=== PATIENT | female | born 1950 | race Caucasian/White ===

== ENCOUNTER 2017-02-11 13:36 | Emergency (ER) | payer MEDICARE, MEDICAID, SELFPAY ==
[2017-02-11 14:16] LABS: CHLORIDE,CL 101 mmol/L (98-107); SODIUM,NA 137 mmol/L (136-145)
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
[2017-02-11] MEDS ORDERED: Potassium Chloride 20 MEQ Tab.ER PO ONE (14:29)
[2017-02-11] MEDS ORDERED: D5 1/2 NS w/ 20 mEq/L KCl 500 ML IV SCH (15:15)
[2017-02-11] MEDS ORDERED: Sodium Chloride 0.9% 1,000 ML IV ONE (19:55)
[2017-02-11 21:00] VITALS: BP 114/80
== END 2017-02-11 20:37 ==
LOC: LL.ED 13:36
DX: S09.90XA Unspecified injury of head, initial encounter (principal); N39.0 Urinary tract infection, site not specified; E87.6 Hypokalemia; F19.10 Other psychoactive substance abuse, uncomplicated; J44.9 Chronic obstructive pulmonary disease, unspecified; K21.9 Gastro-esophageal reflux disease without esophagitis; G43.909 Migraine, unspecified, not intractable, without status migrainosus; F41.9 Anxiety disorder, unspecified; F32.9 Major depressive disorder, single episode, unspecified; E66.9 Obesity, unspecified; Z88.6 Allergy status to analgesic agent; Z91.040 Latex allergy status; Z88.1 Allergy status to other antibiotic agents; Z88.5 Allergy status to narcotic agent; Z91.09 Other allergy status, other than to drugs and biological substances; Z79.899 Other long term (current) drug therapy; Z79.01 Long term (current) use of anticoagulants; Z87.891 Personal history of nicotine dependence; W22.8XXA Striking against or struck by other objects, initial encounter
CPT/HCPCS: 36415; 70450; 80053; 80305; 81001; 85025; 85610; 87086; 93005; 96360; 96361; 99285; A9270; G0480; J3480

== ENCOUNTER 2022-01-21 12:41 | Emergency (ER) | payer MEDICARE ==
[2022-01-21] MEDS ORDERED: Sodium Chloride 0.9% 1,000 ML IV SCH (12:45)
[2022-01-21] MEDS: fentaNYL 50 MCG/ML SDV IVPUSH PRN ×2 (12:54→15:57)
[2022-01-21 13:15] LABS: ANION GAP 5.3 meq/L (7-15); CHLORIDE,CL 105 mmol/L (98-107); SODIUM,NA 140 mmol/L (136-145)
[2022-01-21 18:14] VITALS: BP 136/95; PULSE 66
== END 2022-01-21 16:07 ==
LOC: LL.ED 12:41
DX: S82.853A Displaced trimalleolar fracture of unspecified lower leg, initial encounter for closed fracture (principal); S00.81XA Abrasion of other part of head, initial encounter; J44.9 Chronic obstructive pulmonary disease, unspecified; K21.9 Gastro-esophageal reflux disease without esophagitis; E66.9 Obesity, unspecified; Z68.30 Body mass index [BMI] 30.0-30.9, adult; Z88.1 Allergy status to other antibiotic agents; Z91.040 Latex allergy status; Z88.8 Allergy status to other drugs, medicaments and biological substances; Z79.84 Long term (current) use of oral hypoglycemic drugs; W00.0XXA Fall on same level due to ice and snow, initial encounter
CPT/HCPCS: 27818; 36415; 70450; 71045; 72131; 73610-LT; 80053; 83735; 85025; 85610; 87426; 93005; 93010; 99285; 99285-25; J3010; J7030

== ENCOUNTER 2022-01-27 09:00 | Inpatient (IN) | payer MEDICARE ==
[2022-01-27] MEDS ORDERED: Polyethylene Glycol 3350 Powder 17 GM Packet PO PRN (13:25)
[2022-01-27] MEDS: oxyCODONE 5 MG Tab PO PRN ×3 (14:07→22:21)
[2022-01-27] MEDS ORDERED: oxyCODONE 5 MG Tab PO PRN (14:26)
[2022-01-27] MEDS: Docusate Sodium 100 MG Cap PO SCH (17:21)
[2022-01-27] MEDS: Baclofen 10 MG Tab PO SCH (17:21)
[2022-01-27] MEDS: metFORMIN 500 MG Tab PO SCH (17:21)
[2022-01-27] MEDS: Doxepin 25 MG Cap PO PRN (22:20)
[2022-01-27] MEDS: LORazepam 0.5 MG Tab PO PRN (22:22)
[2022-01-28] MEDS: Ascorbic Acid 500 MG Tab PO SCH (07:14)
[2022-01-28] MEDS: Docusate Sodium 100 MG Cap PO SCH ×2 (07:14→17:12)
[2022-01-28] MEDS: Simvastatin 20 MG Tab PO SCH (07:15)
[2022-01-28] MEDS: Folic Acid 1 MG Tab PO SCH (07:15)
[2022-01-28] MEDS: metFORMIN 500 MG Tab PO SCH ×2 (07:15→17:13)
[2022-01-28] MEDS: Cholecalciferol (Vitamin D3) 25 MCG Tab PO SCH (07:16)
[2022-01-28] MEDS: Baclofen 10 MG Tab PO SCH ×3 (07:16→17:13)
[2022-01-28] MEDS: oxyCODONE 5 MG Tab PO PRN ×4 (07:16→20:19)
[2022-01-28] MEDS: Omeprazole 20 MG Cap.CR PO SCH (07:17)
[2022-01-28] MEDS: Calcium Carbonate/Vitamin D3 1500 MG-400 Units Tab PO SCH (07:17)
[2022-01-28] MEDS: Fish Oil/Omega-3 Fatty Acids 1 Gm Cap PO SCH (07:18)
[2022-01-28] MEDS ORDERED: Warfarin 5 MG Tab PO ONE (18:00)
[2022-01-28] MEDS: Enoxaparin 100 MG/1 ML Syringe SUBCUT SCH (20:19)
[2022-01-28] MEDS: Doxepin 25 MG Cap PO PRN (22:16)
[2022-01-28] MEDS: LORazepam 0.5 MG Tab PO PRN (22:16)
[2022-01-29] MEDS: Calcium Carbonate/Vitamin D3 1500 MG-400 Units Tab PO SCH (08:02)
[2022-01-29] MEDS: Docusate Sodium 100 MG Cap PO SCH ×2 (08:03→18:19)
[2022-01-29] MEDS: oxyCODONE 5 MG Tab PO PRN ×4 (08:03→20:52)
[2022-01-29] MEDS: Simvastatin 20 MG Tab PO SCH (08:04)
[2022-01-29] MEDS: Cholecalciferol (Vitamin D3) 25 MCG Tab PO SCH (08:04)
[2022-01-29] MEDS: Fish Oil/Omega-3 Fatty Acids 1 Gm Cap PO SCH (08:05)
[2022-01-29] MEDS: Ascorbic Acid 500 MG Tab PO SCH (08:05)
[2022-01-29] MEDS: metFORMIN 500 MG Tab PO SCH ×2 (08:05→18:19)
[2022-01-29] MEDS: Baclofen 10 MG Tab PO SCH ×3 (08:06→18:18)
[2022-01-29] MEDS: Folic Acid 1 MG Tab PO SCH (08:06)
[2022-01-29] MEDS: Enoxaparin 100 MG/1 ML Syringe SUBCUT SCH ×2 (08:07→20:30)
[2022-01-29] MEDS: Omeprazole 20 MG Cap.CR PO SCH (08:12)
[2022-01-29] MEDS ORDERED: Warfarin 5 MG Tab PO ONE (18:00)
[2022-01-29] MEDS: Doxepin 25 MG Cap PO PRN (22:12)
[2022-01-29] MEDS: LORazepam 0.5 MG Tab PO PRN (22:12)
[2022-01-30] MEDS: Ascorbic Acid 500 MG Tab PO SCH (07:14)
[2022-01-30] MEDS: Omeprazole 20 MG Cap.CR PO SCH (07:14)
[2022-01-30] MEDS: oxyCODONE 5 MG Tab PO PRN ×4 (07:14→21:01)
[2022-01-30] MEDS: Calcium Carbonate/Vitamin D3 1500 MG-400 Units Tab PO SCH (07:14)
[2022-01-30] MEDS: Cholecalciferol (Vitamin D3) 25 MCG Tab PO SCH (07:15)
[2022-01-30] MEDS: Simvastatin 20 MG Tab PO SCH (07:15)
[2022-01-30] MEDS: metFORMIN 500 MG Tab PO SCH ×2 (07:15→17:19)
[2022-01-30] MEDS: Docusate Sodium 100 MG Cap PO SCH ×2 (07:16→17:25)
[2022-01-30] MEDS: Folic Acid 1 MG Tab PO SCH (07:16)
[2022-01-30] MEDS: Baclofen 10 MG Tab PO SCH ×3 (07:16→17:20)
[2022-01-30] MEDS: Fish Oil/Omega-3 Fatty Acids 1 Gm Cap PO SCH (07:16)
[2022-01-30] MEDS: Enoxaparin 100 MG/1 ML Syringe SUBCUT SCH ×2 (07:17→20:59)
[2022-01-30] MEDS ORDERED: Warfarin 5 MG Tab PO ONE (18:00)
[2022-01-30] MEDS: LORazepam 0.5 MG Tab PO PRN (22:40)
[2022-01-30] MEDS: Doxepin 25 MG Cap PO PRN (22:40)
[2022-01-31] MEDS: oxyCODONE 5 MG Tab PO PRN ×5 (01:08→19:40)
[2022-01-31] MEDS: Omeprazole 20 MG Cap.CR PO SCH (07:34)
[2022-01-31] MEDS: Calcium Carbonate/Vitamin D3 1500 MG-400 Units Tab PO SCH (07:34)
[2022-01-31] MEDS: Folic Acid 1 MG Tab PO SCH (07:34)
[2022-01-31] MEDS: Fish Oil/Omega-3 Fatty Acids 1 Gm Cap PO SCH (07:35)
[2022-01-31] MEDS: Cholecalciferol (Vitamin D3) 25 MCG Tab PO SCH (07:35)
[2022-01-31] MEDS: Baclofen 10 MG Tab PO SCH ×3 (07:35→18:13)
[2022-01-31] MEDS: Ascorbic Acid 500 MG Tab PO SCH (07:35)
[2022-01-31] MEDS: metFORMIN 500 MG Tab PO SCH ×2 (07:35→18:13)
[2022-01-31] MEDS: Simvastatin 20 MG Tab PO SCH (07:36)
[2022-01-31] MEDS: Docusate Sodium 100 MG Cap PO SCH ×2 (07:36→18:13)
[2022-01-31] MEDS: Enoxaparin 100 MG/1 ML Syringe SUBCUT SCH (10:26)
[2022-01-31] MEDS ORDERED: Warfarin 5 MG Tab PO ONE (18:00)
[2022-01-31] MEDS: LORazepam 0.5 MG Tab PO PRN (22:06)
[2022-01-31] MEDS: Doxepin 25 MG Cap PO PRN (22:07)
[2022-02-01] MEDS: oxyCODONE 5 MG Tab PO PRN ×5 (01:36→21:15)
[2022-02-01] MEDS: Folic Acid 1 MG Tab PO SCH (07:43)
[2022-02-01] MEDS: Docusate Sodium 100 MG Cap PO SCH ×2 (07:44→17:18)
[2022-02-01] MEDS: metFORMIN 500 MG Tab PO SCH ×2 (07:44→17:18)
[2022-02-01] MEDS: Ascorbic Acid 500 MG Tab PO SCH (07:44)
[2022-02-01] MEDS: Omeprazole 20 MG Cap.CR PO SCH (07:45)
[2022-02-01] MEDS: Baclofen 10 MG Tab PO SCH ×3 (07:45→17:18)
[2022-02-01] MEDS: Simvastatin 20 MG Tab PO SCH (07:45)
[2022-02-01] MEDS: Cholecalciferol (Vitamin D3) 25 MCG Tab PO SCH (07:45)
[2022-02-01] MEDS: Calcium Carbonate/Vitamin D3 1500 MG-400 Units Tab PO SCH (07:46)
[2022-02-01] MEDS: Fish Oil/Omega-3 Fatty Acids 1 Gm Cap PO SCH (07:46)
[2022-02-01] MEDS ORDERED: Warfarin 2 MG Tab PO ONE (18:00)
[2022-02-01] MEDS: Doxepin 25 MG Cap PO PRN (22:22)
[2022-02-01] MEDS: LORazepam 0.5 MG Tab PO PRN (22:22)
[2022-02-02] MEDS: oxyCODONE 5 MG Tab PO PRN ×2 (04:10→08:31)
[2022-02-02] MEDS: Methotrexate 2.5 MG Tab PO SCH (08:30)
[2022-02-02] MEDS: Cholecalciferol (Vitamin D3) 25 MCG Tab PO SCH (08:30)
[2022-02-02] MEDS: Fish Oil/Omega-3 Fatty Acids 1 Gm Cap PO SCH (08:30)
[2022-02-02] MEDS: Omeprazole 20 MG Cap.CR PO SCH (08:30)
[2022-02-02] MEDS: Calcium Carbonate/Vitamin D3 1500 MG-400 Units Tab PO SCH (08:30)
[2022-02-02] MEDS: Folic Acid 1 MG Tab PO SCH (08:30)
[2022-02-02] MEDS: Ascorbic Acid 500 MG Tab PO SCH (08:30)
[2022-02-02] MEDS: Docusate Sodium 100 MG Cap PO SCH ×2 (08:30→17:24)
[2022-02-02] MEDS: Baclofen 10 MG Tab PO SCH ×3 (08:31→17:24)
[2022-02-02] MEDS: Simvastatin 20 MG Tab PO SCH (08:31)
[2022-02-02] MEDS: metFORMIN 500 MG Tab PO SCH ×2 (08:32→17:23)
[2022-02-02] MEDS ORDERED: fentaNYL 12 MCG/HR Transdermal Patch TRDERM SCH (10:00)
[2022-02-02] MEDS: traMADol 50 MG Tab PO PRN (16:45)
[2022-02-02] MEDS: Warfarin 2 MG Tab PO SCH (17:23)
[2022-02-02] MEDS: Gabapentin 300 MG Cap PO SCH (17:24)
[2022-02-02] MEDS: Doxepin 25 MG Cap PO PRN (20:46)
[2022-02-02] MEDS: LORazepam 0.5 MG Tab PO PRN (20:47)
[2022-02-03] MEDS: Ascorbic Acid 500 MG Tab PO SCH (07:52)
[2022-02-03] MEDS: metFORMIN 500 MG Tab PO SCH ×2 (07:53→17:11)
[2022-02-03] MEDS: Simvastatin 20 MG Tab PO SCH (07:53)
[2022-02-03] MEDS: Omeprazole 20 MG Cap.CR PO SCH (07:53)
[2022-02-03] MEDS: Calcium Carbonate/Vitamin D3 1500 MG-400 Units Tab PO SCH (07:54)
[2022-02-03] MEDS: Baclofen 10 MG Tab PO SCH (07:54)
[2022-02-03] MEDS: Cholecalciferol (Vitamin D3) 25 MCG Tab PO SCH (07:54)
[2022-02-03] MEDS: Folic Acid 1 MG Tab PO SCH (07:54)
[2022-02-03] MEDS: Gabapentin 300 MG Cap PO SCH (07:55)
[2022-02-03] MEDS: Fish Oil/Omega-3 Fatty Acids 1 Gm Cap PO SCH (07:55)
[2022-02-03] MEDS: Docusate Sodium 100 MG Cap PO SCH ×3 (07:55→17:12)
[2022-02-03] MEDS: traMADol 50 MG Tab PO PRN ×2 (14:46→22:46)
[2022-02-03] MEDS: Pregabalin 75 MG Cap PO SCH (17:11)
[2022-02-03] MEDS: Warfarin 2 MG Tab PO SCH (17:12)
[2022-02-03] MEDS: Baclofen 10 MG Tab PO PRN (20:30)
[2022-02-03] MEDS: Doxepin 25 MG Cap PO PRN (22:44)
[2022-02-04] MEDS: Docusate Sodium 100 MG Cap PO SCH ×2 (07:19→17:16)
[2022-02-04] MEDS: Pregabalin 75 MG Cap PO SCH ×2 (07:19→17:16)
[2022-02-04] MEDS: Ascorbic Acid 500 MG Tab PO SCH (07:19)
[2022-02-04] MEDS: Fish Oil/Omega-3 Fatty Acids 1 Gm Cap PO SCH (07:19)
[2022-02-04] MEDS: Folic Acid 1 MG Tab PO SCH (07:19)
[2022-02-04] MEDS: traMADol 50 MG Tab PO PRN (07:20)
[2022-02-04] MEDS: metFORMIN 500 MG Tab PO SCH ×2 (07:20→17:16)
[2022-02-04] MEDS: Calcium Carbonate/Vitamin D3 1500 MG-400 Units Tab PO SCH (07:21)
[2022-02-04] MEDS: Omeprazole 20 MG Cap.CR PO SCH (07:21)
[2022-02-04] MEDS: Simvastatin 20 MG Tab PO SCH (07:21)
[2022-02-04] MEDS: Cholecalciferol (Vitamin D3) 25 MCG Tab PO SCH (07:21)
[2022-02-04] MEDS ORDERED: traMADol 50 MG Tab PO PRN (11:00)
[2022-02-04] MEDS: Baclofen 10 MG Tab PO PRN ×2 (12:54→20:54)
[2022-02-04] MEDS: Warfarin 2 MG Tab PO SCH (17:17)
[2022-02-04] MEDS: Doxepin 25 MG Cap PO PRN (22:08)
[2022-02-05] MEDS: metFORMIN 500 MG Tab PO SCH ×2 (07:21→17:51)
[2022-02-05] MEDS: Fish Oil/Omega-3 Fatty Acids 1 Gm Cap PO SCH (07:21)
[2022-02-05] MEDS: Omeprazole 20 MG Cap.CR PO SCH (07:21)
[2022-02-05] MEDS: Folic Acid 1 MG Tab PO SCH (07:22)
[2022-02-05] MEDS: Pregabalin 75 MG Cap PO SCH ×2 (07:22→17:51)
[2022-02-05] MEDS: Ascorbic Acid 500 MG Tab PO SCH (07:22)
[2022-02-05] MEDS: Cholecalciferol (Vitamin D3) 25 MCG Tab PO SCH (07:22)
[2022-02-05] MEDS: Simvastatin 20 MG Tab PO SCH (07:22)
[2022-02-05] MEDS: Calcium Carbonate/Vitamin D3 1500 MG-400 Units Tab PO SCH (07:23)
[2022-02-05] MEDS: Docusate Sodium 100 MG Cap PO SCH ×2 (07:23→17:51)
[2022-02-05] MEDS ORDERED: Remove Patch FENTANYL PATCH TRDERM SCH (10:00)
[2022-02-05] MEDS ORDERED: traMADol 50 MG Tab PO PRN (12:00)
[2022-02-05] MEDS: Warfarin 2 MG Tab PO SCH (17:51)
[2022-02-05] MEDS: Doxepin 25 MG Cap PO PRN (22:26)
[2022-02-06] MEDS: Docusate Sodium 100 MG Cap PO SCH ×2 (08:13→17:39)
[2022-02-06] MEDS: Calcium Carbonate/Vitamin D3 1500 MG-400 Units Tab PO SCH (08:13)
[2022-02-06] MEDS: Fish Oil/Omega-3 Fatty Acids 1 Gm Cap PO SCH (08:13)
[2022-02-06] MEDS: Pregabalin 75 MG Cap PO SCH ×2 (08:13→17:40)
[2022-02-06] MEDS: metFORMIN 500 MG Tab PO SCH ×2 (08:13→17:40)
[2022-02-06] MEDS: Simvastatin 20 MG Tab PO SCH (08:13)
[2022-02-06] MEDS: Folic Acid 1 MG Tab PO SCH (08:13)
[2022-02-06] MEDS: Ascorbic Acid 500 MG Tab PO SCH (08:13)
[2022-02-06] MEDS: Omeprazole 20 MG Cap.CR PO SCH (08:14)
[2022-02-06] MEDS: Cholecalciferol (Vitamin D3) 25 MCG Tab PO SCH (08:14)
[2022-02-06] MEDS: Baclofen 10 MG Tab PO PRN ×2 (15:51→22:14)
[2022-02-06] MEDS: Warfarin 2 MG Tab PO SCH (17:40)
[2022-02-06] MEDS ORDERED: Ketorolac 30 MG/ML SDV IM ONE (19:58)
[2022-02-06] MEDS: Doxepin 25 MG Cap PO PRN (22:14)
[2022-02-06] MEDS: traMADol 50 MG Tab PO PRN (22:15)
[2022-02-07] MEDS: Folic Acid 1 MG Tab PO SCH (07:38)
[2022-02-07] MEDS: Fish Oil/Omega-3 Fatty Acids 1 Gm Cap PO SCH (07:38)
[2022-02-07] MEDS: Omeprazole 20 MG Cap.CR PO SCH (07:38)
[2022-02-07] MEDS: Pregabalin 75 MG Cap PO SCH ×2 (07:38→17:42)
[2022-02-07] MEDS: Calcium Carbonate/Vitamin D3 1500 MG-400 Units Tab PO SCH (07:39)
[2022-02-07] MEDS: Cholecalciferol (Vitamin D3) 25 MCG Tab PO SCH (07:39)
[2022-02-07] MEDS: Simvastatin 20 MG Tab PO SCH (07:40)
[2022-02-07] MEDS: metFORMIN 500 MG Tab PO SCH ×2 (07:40→16:40)
[2022-02-07] MEDS: Ascorbic Acid 500 MG Tab PO SCH (07:40)
[2022-02-07] MEDS: Docusate Sodium 100 MG Cap PO SCH ×2 (07:41→17:44)
[2022-02-07] MEDS: traMADol 50 MG Tab PO PRN ×2 (12:40→21:57)
[2022-02-07] MEDS: Baclofen 10 MG Tab PO PRN ×2 (16:40→21:57)
[2022-02-07] MEDS: Warfarin 2 MG Tab PO SCH (17:43)
[2022-02-07] MEDS: Doxepin 25 MG Cap PO PRN (21:58)
[2022-02-08] MEDS: Ascorbic Acid 500 MG Tab PO SCH (07:54)
[2022-02-08] MEDS: Fish Oil/Omega-3 Fatty Acids 1 Gm Cap PO SCH (07:55)
[2022-02-08] MEDS: Calcium Carbonate/Vitamin D3 1500 MG-400 Units Tab PO SCH (07:55)
[2022-02-08] MEDS: metFORMIN 500 MG Tab PO SCH ×2 (07:55→17:07)
[2022-02-08] MEDS: Cholecalciferol (Vitamin D3) 25 MCG Tab PO SCH (07:55)
[2022-02-08] MEDS: Omeprazole 20 MG Cap.CR PO SCH (07:55)
[2022-02-08] MEDS: Simvastatin 20 MG Tab PO SCH (07:55)
[2022-02-08] MEDS: Pregabalin 75 MG Cap PO SCH ×2 (07:56→17:07)
[2022-02-08] MEDS: Docusate Sodium 100 MG Cap PO SCH ×2 (07:56→17:08)
[2022-02-08] MEDS: Folic Acid 1 MG Tab PO SCH (07:56)
[2022-02-08] MEDS: Warfarin 2 MG Tab PO SCH (17:07)
[2022-02-08] MEDS: Doxepin 25 MG Cap PO PRN (22:33)
[2022-02-08] MEDS: Baclofen 10 MG Tab PO PRN (22:33)
[2022-02-09] MEDS: traMADol 50 MG Tab PO PRN ×3 (02:23→21:46)
[2022-02-09] MEDS: Calcium Carbonate/Vitamin D3 1500 MG-400 Units Tab PO SCH (07:37)
[2022-02-09] MEDS: Methotrexate 2.5 MG Tab PO SCH (07:37)
[2022-02-09] MEDS: Pregabalin 75 MG Cap PO SCH ×2 (07:38→17:17)
[2022-02-09] MEDS: Ascorbic Acid 500 MG Tab PO SCH (07:38)
[2022-02-09] MEDS: Folic Acid 1 MG Tab PO SCH (07:38)
[2022-02-09] MEDS: Cholecalciferol (Vitamin D3) 25 MCG Tab PO SCH (07:39)
[2022-02-09] MEDS: Omeprazole 20 MG Cap.CR PO SCH (07:39)
[2022-02-09] MEDS: Fish Oil/Omega-3 Fatty Acids 1 Gm Cap PO SCH (07:39)
[2022-02-09] MEDS: metFORMIN 500 MG Tab PO SCH ×2 (07:39→17:17)
[2022-02-09] MEDS: Simvastatin 20 MG Tab PO SCH (07:40)
[2022-02-09] MEDS: Docusate Sodium 100 MG Cap PO SCH ×2 (07:40→17:18)
[2022-02-09] MEDS: Warfarin 2 MG Tab PO SCH (17:18)
[2022-02-09] MEDS: Doxepin 25 MG Cap PO PRN (21:46)
[2022-02-09] MEDS: Baclofen 10 MG Tab PO PRN (21:50)
[2022-02-10] MEDS: Folic Acid 1 MG Tab PO SCH (07:16)
[2022-02-10] MEDS: Simvastatin 20 MG Tab PO SCH (07:16)
[2022-02-10] MEDS: metFORMIN 500 MG Tab PO SCH ×2 (07:16→17:12)
[2022-02-10] MEDS: Ascorbic Acid 500 MG Tab PO SCH (07:16)
[2022-02-10] MEDS: Cholecalciferol (Vitamin D3) 25 MCG Tab PO SCH (07:17)
[2022-02-10] MEDS: Calcium Carbonate/Vitamin D3 1500 MG-400 Units Tab PO SCH (07:17)
[2022-02-10] MEDS: Omeprazole 20 MG Cap.CR PO SCH (07:17)
[2022-02-10] MEDS: Pregabalin 75 MG Cap PO SCH ×2 (07:17→17:12)
[2022-02-10] MEDS: Fish Oil/Omega-3 Fatty Acids 1 Gm Cap PO SCH (07:17)
[2022-02-10] MEDS: Docusate Sodium 100 MG Cap PO SCH ×2 (07:18→17:12)
[2022-02-10] MEDS: Warfarin 2 MG Tab PO SCH (17:12)
[2022-02-10] MEDS: Doxepin 25 MG Cap PO PRN (21:48)
[2022-02-10] MEDS: traMADol 50 MG Tab PO PRN (21:48)
[2022-02-11] MEDS: traMADol 50 MG Tab PO PRN (03:59)
[2022-02-11] MEDS: metFORMIN 500 MG Tab PO SCH ×2 (08:03→17:21)
[2022-02-11] MEDS: Omeprazole 20 MG Cap.CR PO SCH (08:03)
[2022-02-11] MEDS: Calcium Carbonate/Vitamin D3 1500 MG-400 Units Tab PO SCH (08:03)
[2022-02-11] MEDS: Docusate Sodium 100 MG Cap PO SCH ×3 (08:04→17:21)
[2022-02-11] MEDS: Ascorbic Acid 500 MG Tab PO SCH (08:04)
[2022-02-11] MEDS: Fish Oil/Omega-3 Fatty Acids 1 Gm Cap PO SCH (08:04)
[2022-02-11] MEDS: Pregabalin 75 MG Cap PO SCH ×2 (08:05→17:21)
[2022-02-11] MEDS: Folic Acid 1 MG Tab PO SCH (08:05)
[2022-02-11] MEDS: Simvastatin 20 MG Tab PO SCH (08:06)
[2022-02-11] MEDS: Cholecalciferol (Vitamin D3) 25 MCG Tab PO SCH (08:07)
[2022-02-11] MEDS: oxyCODONE 5 MG Tab PO PRN ×2 (15:08→19:13)
[2022-02-11] MEDS: Warfarin 2 MG Tab PO SCH (17:22)
[2022-02-11] MEDS: Baclofen 10 MG Tab PO PRN (21:03)
[2022-02-11] MEDS: Doxepin 25 MG Cap PO PRN (21:04)
[2022-02-12] MEDS: Fish Oil/Omega-3 Fatty Acids 1 Gm Cap PO SCH (07:43)
[2022-02-12] MEDS: Calcium Carbonate/Vitamin D3 1500 MG-400 Units Tab PO SCH (07:43)
[2022-02-12] MEDS: Docusate Sodium 100 MG Cap PO SCH ×2 (07:43→17:17)
[2022-02-12] MEDS: Pregabalin 75 MG Cap PO SCH ×2 (07:43→17:16)
[2022-02-12] MEDS: Folic Acid 1 MG Tab PO SCH (07:44)
[2022-02-12] MEDS: Ascorbic Acid 500 MG Tab PO SCH (07:44)
[2022-02-12] MEDS: Cholecalciferol (Vitamin D3) 25 MCG Tab PO SCH (07:44)
[2022-02-12] MEDS: Simvastatin 20 MG Tab PO SCH (07:44)
[2022-02-12] MEDS: metFORMIN 500 MG Tab PO SCH ×2 (07:44→17:16)
[2022-02-12] MEDS: Omeprazole 20 MG Cap.CR PO SCH (07:44)
[2022-02-12] MEDS: oxyCODONE 5 MG Tab PO PRN ×2 (07:47→16:01)
[2022-02-12] MEDS: Polyvinyl Alcohol 1.4% Ophth Soln 15 ML Bottle EYEBOTH PRN ×2 (09:54→17:17)
[2022-02-12] MEDS: Warfarin 2 MG Tab PO SCH (17:15)
[2022-02-12] MEDS: Doxepin 25 MG Cap PO PRN (22:29)
[2022-02-12] MEDS: Baclofen 10 MG Tab PO PRN (22:29)
[2022-02-13] MEDS: oxyCODONE 5 MG Tab PO PRN ×3 (08:50→20:47)
[2022-02-13] MEDS: Calcium Carbonate/Vitamin D3 1500 MG-400 Units Tab PO SCH (08:50)
[2022-02-13] MEDS: Ascorbic Acid 500 MG Tab PO SCH (08:51)
[2022-02-13] MEDS: Cholecalciferol (Vitamin D3) 25 MCG Tab PO SCH (08:51)
[2022-02-13] MEDS: Omeprazole 20 MG Cap.CR PO SCH (08:52)
[2022-02-13] MEDS: metFORMIN 500 MG Tab PO SCH ×2 (08:52→17:17)
[2022-02-13] MEDS: Docusate Sodium 100 MG Cap PO SCH ×2 (08:52→17:17)
[2022-02-13] MEDS: Folic Acid 1 MG Tab PO SCH (08:53)
[2022-02-13] MEDS: Fish Oil/Omega-3 Fatty Acids 1 Gm Cap PO SCH (08:53)
[2022-02-13] MEDS: Pregabalin 75 MG Cap PO SCH ×2 (08:53→17:16)
[2022-02-13] MEDS: Simvastatin 20 MG Tab PO SCH (08:53)
[2022-02-13] MEDS: Warfarin 2 MG Tab PO SCH (17:17)
[2022-02-13] MEDS: Baclofen 10 MG Tab PO PRN (22:37)
[2022-02-13] MEDS: Doxepin 25 MG Cap PO PRN (22:37)
[2022-02-14] MEDS: Folic Acid 1 MG Tab PO SCH (07:31)
[2022-02-14] MEDS: metFORMIN 500 MG Tab PO SCH ×2 (07:31→17:43)
[2022-02-14] MEDS: Ascorbic Acid 500 MG Tab PO SCH (07:31)
[2022-02-14] MEDS: Fish Oil/Omega-3 Fatty Acids 1 Gm Cap PO SCH (07:31)
[2022-02-14] MEDS: Cholecalciferol (Vitamin D3) 25 MCG Tab PO SCH (07:31)
[2022-02-14] MEDS: Calcium Carbonate/Vitamin D3 1500 MG-400 Units Tab PO SCH (07:32)
[2022-02-14] MEDS: Pregabalin 75 MG Cap PO SCH ×2 (07:32→17:43)
[2022-02-14] MEDS: Omeprazole 20 MG Cap.CR PO SCH (07:32)
[2022-02-14] MEDS: Baclofen 10 MG Tab PO PRN ×2 (07:32→22:15)
[2022-02-14] MEDS: Docusate Sodium 100 MG Cap PO SCH ×2 (07:32→17:43)
[2022-02-14] MEDS: Simvastatin 20 MG Tab PO SCH (07:32)
[2022-02-14] MEDS: oxyCODONE 5 MG Tab PO PRN ×2 (07:33→14:00)
[2022-02-14] MEDS: Warfarin 2 MG Tab PO SCH (17:43)
[2022-02-14] MEDS: Doxepin 25 MG Cap PO PRN (22:15)
[2022-02-15] MEDS: Cholecalciferol (Vitamin D3) 25 MCG Tab PO SCH (07:46)
[2022-02-15] MEDS: Omeprazole 20 MG Cap.CR PO SCH (07:46)
[2022-02-15] MEDS: Folic Acid 1 MG Tab PO SCH (07:46)
[2022-02-15] MEDS: Fish Oil/Omega-3 Fatty Acids 1 Gm Cap PO SCH (07:46)
[2022-02-15] MEDS: Ascorbic Acid 500 MG Tab PO SCH (07:46)
[2022-02-15] MEDS: Calcium Carbonate/Vitamin D3 1500 MG-400 Units Tab PO SCH (07:46)
[2022-02-15] MEDS: metFORMIN 500 MG Tab PO SCH ×2 (07:46→17:44)
[2022-02-15] MEDS: Simvastatin 20 MG Tab PO SCH (07:46)
[2022-02-15] MEDS: Pregabalin 75 MG Cap PO SCH ×2 (07:46→17:44)
[2022-02-15] MEDS: Docusate Sodium 100 MG Cap PO SCH ×2 (07:47→17:45)
[2022-02-15] MEDS: oxyCODONE 5 MG Tab PO PRN ×3 (07:47→21:49)
[2022-02-15] MEDS: Warfarin 2 MG Tab PO SCH (17:44)
[2022-02-15] MEDS: Baclofen 10 MG Tab PO PRN ×2 (17:51→21:49)
[2022-02-15] MEDS: Doxepin 25 MG Cap PO PRN (21:49)
[2022-02-15] MEDS: Polyvinyl Alcohol 1.4% Ophth Soln 15 ML Bottle EYEBOTH PRN (21:50)
[2022-02-16] MEDS: Ascorbic Acid 500 MG Tab PO SCH (08:06)
[2022-02-16] MEDS: Methotrexate 2.5 MG Tab PO SCH (08:06)
[2022-02-16] MEDS: Folic Acid 1 MG Tab PO SCH (08:06)
[2022-02-16] MEDS: Pregabalin 75 MG Cap PO SCH ×2 (08:07→20:05)
[2022-02-16] MEDS: Cholecalciferol (Vitamin D3) 25 MCG Tab PO SCH (08:07)
[2022-02-16] MEDS: Omeprazole 20 MG Cap.CR PO SCH (08:07)
[2022-02-16] MEDS: Calcium Carbonate/Vitamin D3 1500 MG-400 Units Tab PO SCH (08:07)
[2022-02-16] MEDS: Fish Oil/Omega-3 Fatty Acids 1 Gm Cap PO SCH (08:07)
[2022-02-16] MEDS: metFORMIN 500 MG Tab PO SCH ×2 (08:07→17:52)
[2022-02-16] MEDS: Simvastatin 20 MG Tab PO SCH (08:07)
[2022-02-16] MEDS: Polyvinyl Alcohol 1.4% Ophth Soln 15 ML Bottle EYEBOTH PRN ×2 (08:07→15:22)
[2022-02-16] MEDS: oxyCODONE 5 MG Tab PO PRN ×2 (08:08→21:58)
[2022-02-16] MEDS: Docusate Sodium 100 MG Cap PO SCH ×2 (08:09→17:56)
[2022-02-16] MEDS: Baclofen 10 MG Tab PO PRN ×2 (15:28→21:58)
[2022-02-16] MEDS: Menthol/Methyl Salicylate 85 GM Tube TOP PRN (15:29)
[2022-02-16] MEDS: Warfarin 2 MG Tab PO SCH (17:52)
[2022-02-16] MEDS: Doxepin 25 MG Cap PO PRN (21:59)
[2022-02-17] MEDS: Fish Oil/Omega-3 Fatty Acids 1 Gm Cap PO SCH (07:42)
[2022-02-17] MEDS: Folic Acid 1 MG Tab PO SCH (07:42)
[2022-02-17] MEDS: Cholecalciferol (Vitamin D3) 25 MCG Tab PO SCH (07:42)
[2022-02-17] MEDS: Omeprazole 20 MG Cap.CR PO SCH (07:42)
[2022-02-17] MEDS: Simvastatin 20 MG Tab PO SCH (07:42)
[2022-02-17] MEDS: Docusate Sodium 100 MG Cap PO SCH (07:43)
[2022-02-17] MEDS: Calcium Carbonate/Vitamin D3 1500 MG-400 Units Tab PO SCH (07:43)
[2022-02-17] MEDS: Pregabalin 75 MG Cap PO SCH (07:43)
[2022-02-17] MEDS: Ascorbic Acid 500 MG Tab PO SCH (07:43)
[2022-02-17] MEDS: Menthol/Methyl Salicylate 85 GM Tube TOP PRN (07:47)
[2022-02-17] MEDS: metFORMIN 500 MG Tab PO SCH (07:57)
[2022-02-17 09:41] VITALS: BP 142/86; PULSE 87
[2022-02-17] MEDS: Baclofen 10 MG Tab PO PRN (09:44)
[2022-02-17] MEDS: oxyCODONE 5 MG Tab PO PRN (09:59)
== END 2022-02-17 14:03 | disposition home health service (06) | DRG 561 ==
LOC: LL.MS 13:01
PROVIDERS: ADMIT Physician Assistant; ATTEND Physician Assistant
DX: S82.842D Displaced bimalleolar fracture of left lower leg, subsequent encounter for closed fracture with routine healing (principal); J44.9 Chronic obstructive pulmonary disease, unspecified; K57.30 Diverticulosis of large intestine without perforation or abscess without bleeding; M54.9 Dorsalgia, unspecified; G89.29 Other chronic pain; M19.90 Unspecified osteoarthritis, unspecified site; F41.9 Anxiety disorder, unspecified; F32.A Depression, unspecified; E55.9 Vitamin D deficiency, unspecified; M06.9 Rheumatoid arthritis, unspecified; M79.7 Fibromyalgia; Z88.5 Allergy status to narcotic agent; Z91.040 Latex allergy status; Z88.1 Allergy status to other antibiotic agents; Z88.8 Allergy status to other drugs, medicaments and biological substances; Z79.84 Long term (current) use of oral hypoglycemic drugs; Z79.01 Long term (current) use of anticoagulants; Z86.711 Personal history of pulmonary embolism; Z87.891 Personal history of nicotine dependence; Z68.35 Body mass index [BMI] 35.0-35.9, adult
CPT/HCPCS: 36415; 36416; 73610-LT; 82947; 85610; 97110-GO; 97110-GP; 97116-GP; 97162-GP; 97166-GO; 97530-GO; 97530-GP; 97535-GO; 99306; 99307; A9270-GY; J1650; J1885; J8610

== ENCOUNTER 2023-05-21 12:22 | Emergency (ER) | payer MEDICARE, MEDICAID ==
[2023-05-21] MEDS ORDERED: Acetaminophen/oxyCODONE 325-5 MG Tab PO ONE (12:42)
[2023-05-21] MEDS ORDERED: Sodium Chloride 0.9% 10 ML Syringe FLUSH PRN (12:54)
[2023-05-21] MEDS ORDERED: HYDROmorphone 0.5 MG/0.5 ML Syringe IVPUSH ONE (12:55)
[2023-05-21 13:21] LABS: BASOPHILS ABSOLUTE AUTO 0.04 K/uL (0.00-0.20); BASOPHILS PERCENT AUTO 0.6 % (0.0-2.0); EOSINOPHILS ABSOLUTE AUTO 0.05 K/uL (0.00-0.50); EOSINOPHILS PERCENT AUTO 0.8 % (0.0-5.0); HEMATOCRIT 41.8 % (34.0-46.0); HEMOGLOBIN 13.6 g/dL (11.7-15.5); LYMPHOCYTES ABSOLUTE AUTO 1.43 K/uL (0.50-3.50); LYMPHOCYTES PERCENT AUTO 22.8 % (10.0-50.0); MEAN CORPUSCULAR HEMOGLOBIN 32.7 pg (28.2-33.3); MEAN CORPUSCULAR HGB CONC 32.5 g/dL (31.7-36.0); MEAN CORPUSCULAR VOLUME 100.5 fL (84.0-98.0); MONOCYTES ABSOLUTE AUTO 0.73 K/uL (0.00-1.00); MONOCYTES PERCENT AUTO 11.6 % (2.0-14.0); NEUTROPHILS ABSOLUTE AUTO 4.03 K/uL (1.40-7.00); NEUTROPHILS PERCENT AUTO 64.2 % (45.0-80.0); PLATELET COUNT,PLT 305 K/uL (150-350); RED BLOOD CELL COUNT 4.16 M/uL (3.77-5.09); WHITE BLOOD CELL COUNT,WBC 6.3 K/uL (4.0-10.2)
[2023-05-21 13:35] LABS: INR 2.6; PROTHROMBIN TIME 25.2 SEC (9.0-11.1)
[2023-05-21 13:40] LABS: ALANINE AMINOTRANSFERASE,ALT 13 U/L (12-78); ALBUMIN 3.6 g/dL (3.4-5.0); ALKALINE PHOSPHATASE 99 IU/L (46-116); ANION GAP 7.4 meq/L (7-15); ASPARTATE AMNIOTRANSFERASE,AST 24 U/L (15-37); BILIRUBIN TOTAL 0.3 mg/dL (0.2-1.0); BLOOD UREA NITROGEN,BUN 14 mg/dL (7-18); CALCIUM 9.1 mg/dL (8.5-10.1); CARBON DIOXIDE,CO2 28.6 mmol/L (21.0-32.0); CHLORIDE,CL 104 mmol/L (98-107); CREATININE 1.51 mg/dL (0.51-1.17); GLUCOSE RANDOM 103 mg/dL (70-99); POTASSIUM,K 4.9 mmol/L (3.5-5.1); PROTEIN TOTAL,TP 7.6 g/dL (6.4-8.2); SODIUM,NA 140 mmol/L (136-145)
[2023-05-21 13:41] LABS: ESTIMATED GFR 37 mL/min (>=60)
[2023-05-21] MEDS ORDERED: Take Home: traMADol 50 MG, 4 Tab Pack PO ONE (14:14)
[2023-05-21 15:16] VITALS: BP 152/86; PULSE 64
== END 2023-05-21 14:37 | disposition home or self-care (01) ==
LOC: LL.ED 12:22
DX: S80.01XA Contusion of right knee, initial encounter (principal); J44.9 Chronic obstructive pulmonary disease, unspecified; E78.00 Pure hypercholesterolemia, unspecified; K21.9 Gastro-esophageal reflux disease without esophagitis; E66.9 Obesity, unspecified; Z68.32 Body mass index [BMI] 32.0-32.9, adult; Z88.2 Allergy status to sulfonamides; Z88.1 Allergy status to other antibiotic agents; Z88.5 Allergy status to narcotic agent; Z88.8 Allergy status to other drugs, medicaments and biological substances; Z91.040 Latex allergy status; Z79.899 Other long term (current) drug therapy; Z79.84 Long term (current) use of oral hypoglycemic drugs; Z79.01 Long term (current) use of anticoagulants; Z98.890 Other specified postprocedural states; W17.89XA Other fall from one level to another, initial encounter
CPT/HCPCS: 36415; 70450; 73560-RT; 73590-RT; 80053; 85025; 85610; 96374; 99283; 99284-25; J1170

== ENCOUNTER 2025-06-16 14:02 | Inpatient (IN) | payer MEDICARE ==
[2025-06-16 14:41] LABS: BASOPHILS ABSOLUTE AUTO 0.00 K/uL (0.00-0.20); BASOPHILS PERCENT AUTO 0.0 % (0.0-2.0); EOSINOPHILS ABSOLUTE AUTO 0.00 K/uL (0.00-0.50); EOSINOPHILS PERCENT AUTO 0.0 % (0.0-5.0); IMMATURE GRAN ABSOLUTE AUTO 0.03 10^3/uL (0.00-0.04); IMMATURE GRAN PERCENT AUTO 0.4 % (0.0-0.4); LACTIC ACID 1.7 mmol/L (0.4-2.0); LYMPHOCYTES ABSOLUTE AUTO 1.42 K/uL (0.50-3.50); LYMPHOCYTES PERCENT AUTO 18.8 % (10.0-50.0); MONOCYTES ABSOLUTE AUTO 1.15 K/uL (0.00-1.00); MONOCYTES PERCENT AUTO 15.2 % (2.0-14.0); NEUTROPHILS ABSOLUTE AUTO 4.95 K/uL (1.40-7.00); NEUTROPHILS PERCENT AUTO 65.6 % (45.0-80.0); PLATELET COUNT,PLT 200 K/uL (150-350); RED BLOOD CELL COUNT 4.07 M/uL (3.77-5.09); RED CELL DISTRIBUTION WIDTH 13.8 % (11.2-14.1); WHITE BLOOD CELL COUNT,WBC 7.6 K/uL (4.0-10.2)
[2025-06-16 14:49] LABS: ALANINE AMINOTRANSFERASE,ALT 197 U/L (12-78); ASPARTATE AMNIOTRANSFERASE,AST 643 U/L (15-37); BILIRUBIN TOTAL 0.5 mg/dL (0.2-1.0); BLOOD UREA NITROGEN,BUN 45 mg/dL (7-18); CARBON DIOXIDE,CO2 26.2 mmol/L (21.0-32.0); CHLORIDE,CL 106 mmol/L (98-107); CREATININE 2.16 mg/dL (0.51-1.17); ESTIMATED GFR 23 mL/min (>=60); GLUCOSE RANDOM 83 mg/dL (70-99); POTASSIUM,K 5.3 mmol/L (3.5-5.1); PROTEIN TOTAL,TP 6.2 g/dL (6.4-8.2); SODIUM,NA 139 mmol/L (136-145)
[2025-06-16 14:52] LABS: INR > 13.0 (0.9-1.1)
[2025-06-16] MEDS ORDERED: Pharmacy Consult Order SCH (15:00)
[2025-06-16 15:10] LABS: CREATINE KINASE,CK 20936 U/L (26-308)
[2025-06-16] MEDS ORDERED: Ondansetron 4 MG/2 ML SDV IVPUSH PRN (18:25)
[2025-06-16 19:43] LABS: APPEARANCE,URINE CLOUDY; GLUCOSE,URINE NEGATIVE (NEGATIVE); OCCULT BLOOD,URINE LARGE (NEGATIVE)
[2025-06-16 19:53] LABS: AMPHETAMINES SCREEN, URINE NEGATIVE (NEGATIVE); COCAINE METABOLITES,URINE NEGATIVE (NEGATIVE); EDDP,URINE SCREEN NEGATIVE (NEGATIVE); METHAMPHETAMINES SCREEN, URINE NEGATIVE (NEGATIVE); TCA SCREEN,URINE POSITIVE (NEGATIVE); THC SCREEN,URINE 50 NG/ML NEGATIVE (NEGATIVE)
[2025-06-16 19:54] LABS: BUPRENORPHINE SCREEN,URINE NEGATIVE (NEGATIVE); OXYCODONE SCREEN,URINE NEGATIVE (NEGATIVE)
[2025-06-16] MEDS: Bacitracin Oint 1 GM U/D Packet TOP SCH (20:13)
[2025-06-16] MEDS: Orphenadrine 100 MG Tab.ER PO SCH (21:57)
[2025-06-17 08:58] LABS: BLOOD UREA NITROGEN,BUN 40.0 mg/dL (7-18); CARBON DIOXIDE,CO2 26.1 mmol/L (21.0-32.0); CHLORIDE,CL 108.0 mmol/L (98-107); CREATININE 1.94 mg/dL (0.51-1.17); EST CRCL DRUG DOSING (CG) 18.27 mL/min; GLUCOSE RANDOM 104.0 mg/dL (70-99); POTASSIUM,K 4.3 mmol/L (3.5-5.1); SODIUM,NA 141.0 mmol/L (136-145)
[2025-06-17 09:10] LABS: ESTIMATED GFR 27.0 mL/min (>=60)
[2025-06-17 09:12] LABS: BASOPHILS ABSOLUTE AUTO 0.01 K/uL (0.00-0.20); BASOPHILS PERCENT AUTO 0.2 % (0.0-2.0); EOSINOPHILS ABSOLUTE AUTO 0.01 K/uL (0.00-0.50); EOSINOPHILS PERCENT AUTO 0.2 % (0.0-5.0); IMMATURE GRAN ABSOLUTE AUTO 0.04 10^3/uL (0.00-0.04); IMMATURE GRAN PERCENT AUTO 0.6 % (0.0-0.4); LYMPHOCYTES ABSOLUTE AUTO 1.77 K/uL (0.50-3.50); LYMPHOCYTES PERCENT AUTO 26.7 % (10.0-50.0); MONOCYTES ABSOLUTE AUTO 0.82 K/uL (0.00-1.00); MONOCYTES PERCENT AUTO 12.4 % (2.0-14.0); NEUTROPHILS ABSOLUTE AUTO 3.97 K/uL (1.40-7.00); NEUTROPHILS PERCENT AUTO 59.9 % (45.0-80.0); PLATELET COUNT,PLT 162 K/uL (150-350); RED BLOOD CELL COUNT 3.51 M/uL (3.77-5.09); RED CELL DISTRIBUTION WIDTH 14.2 % (11.2-14.1); WHITE BLOOD CELL COUNT,WBC 6.6 K/uL (4.0-10.2)
[2025-06-17 09:28] LABS: INR 2.4 (0.9-1.1)
[2025-06-17 09:55] LABS: CREATINE KINASE,CK 11323.0 U/L (26-308)
[2025-06-17] MEDS: Polyvinyl Alcohol 1.4% Ophth Soln 15 ML Bottle EYEBOTH PRN (21:01)
[2025-06-18 07:40] LABS: RED BLOOD CELL COUNT 2.95 M/uL (3.77-5.09); WHITE BLOOD CELL COUNT,WBC 4.8 K/uL (4.0-10.2)
[2025-06-18 07:41] LABS: BASOPHILS ABSOLUTE AUTO 0.02 K/uL (0.00-0.20); BASOPHILS PERCENT AUTO 0.4 % (0.0-2.0); EOSINOPHILS ABSOLUTE AUTO 0.11 K/uL (0.00-0.50); EOSINOPHILS PERCENT AUTO 2.3 % (0.0-5.0); IMMATURE GRAN ABSOLUTE AUTO 0.03 10^3/uL (0.00-0.04); IMMATURE GRAN PERCENT AUTO 0.6 % (0.0-0.4); LYMPHOCYTES ABSOLUTE AUTO 1.49 K/uL (0.50-3.50); LYMPHOCYTES PERCENT AUTO 31.3 % (10.0-50.0); MONOCYTES ABSOLUTE AUTO 0.59 K/uL (0.00-1.00); MONOCYTES PERCENT AUTO 12.4 % (2.0-14.0); NEUTROPHILS ABSOLUTE AUTO 2.52 K/uL (1.40-7.00); NEUTROPHILS PERCENT AUTO 53.0 % (45.0-80.0); PLATELET COUNT,PLT 124 K/uL (150-350); RED CELL DISTRIBUTION WIDTH 14.3 % (11.2-14.1)
[2025-06-18] MEDS: Sodium Chloride 0.9% 10 ML Syringe FLUSH PRN (07:43)
[2025-06-18 08:13] LABS: INR 1.8 (0.9-1.1)
[2025-06-18 08:36] LABS: POTASSIUM,K 4.0 mmol/L (3.5-5.1); SODIUM,NA 146.0 mmol/L (136-145)
[2025-06-18 08:37] LABS: BLOOD UREA NITROGEN,BUN 26.0 mg/dL (7-18); CARBON DIOXIDE,CO2 24.6 mmol/L (21.0-32.0); CHLORIDE,CL 115.0 mmol/L (98-107); CREATININE 1.27 mg/dL (0.51-1.17); EST CRCL DRUG DOSING (CG) 27.91 mL/min; ESTIMATED GFR 44.0 mL/min (>=60); GLUCOSE RANDOM 91.0 mg/dL (70-99)
[2025-06-18 09:01] LABS: CREATINE KINASE,CK 15415.0 U/L (26-308)
[2025-06-19 07:35] LABS: BASOPHILS ABSOLUTE AUTO 0.03 K/uL (0.00-0.20); BASOPHILS PERCENT AUTO 0.6 % (0.0-2.0); EOSINOPHILS ABSOLUTE AUTO 0.14 K/uL (0.00-0.50); EOSINOPHILS PERCENT AUTO 2.9 % (0.0-5.0); IMMATURE GRAN ABSOLUTE AUTO 0.04 10^3/uL (0.00-0.04); IMMATURE GRAN PERCENT AUTO 0.8 % (0.0-0.4); LYMPHOCYTES ABSOLUTE AUTO 1.69 K/uL (0.50-3.50); LYMPHOCYTES PERCENT AUTO 34.8 % (10.0-50.0); MONOCYTES ABSOLUTE AUTO 0.69 K/uL (0.00-1.00); MONOCYTES PERCENT AUTO 14.2 % (2.0-14.0); NEUTROPHILS ABSOLUTE AUTO 2.27 K/uL (1.40-7.00); NEUTROPHILS PERCENT AUTO 46.7 % (45.0-80.0); PLATELET COUNT,PLT 157 K/uL (150-350); RED BLOOD CELL COUNT 2.93 M/uL (3.77-5.09); RED CELL DISTRIBUTION WIDTH 14.3 % (11.2-14.1); WHITE BLOOD CELL COUNT,WBC 4.9 K/uL (4.0-10.2)
[2025-06-19 07:57] LABS: BLOOD UREA NITROGEN,BUN 18.0 mg/dL (7-18); CARBON DIOXIDE,CO2 27.6 mmol/L (21.0-32.0); CHLORIDE,CL 113.0 mmol/L (98-107); CREATINE KINASE,CK 5361.0 U/L (26-308); CREATININE 1.25 mg/dL (0.51-1.17); EST CRCL DRUG DOSING (CG) 28.36 mL/min; ESTIMATED GFR 45.0 mL/min (>=60); GLUCOSE RANDOM 86.0 mg/dL (70-99); POTASSIUM,K 3.6 mmol/L (3.5-5.1); SODIUM,NA 145.0 mmol/L (136-145)
[2025-06-20 07:23] LABS: BASOPHILS ABSOLUTE AUTO 0.02 K/uL (0.00-0.20); BASOPHILS PERCENT AUTO 0.4 % (0.0-2.0); EOSINOPHILS ABSOLUTE AUTO 0.13 K/uL (0.00-0.50); EOSINOPHILS PERCENT AUTO 2.3 % (0.0-5.0); IMMATURE GRAN ABSOLUTE AUTO 0.03 10^3/uL (0.00-0.04); IMMATURE GRAN PERCENT AUTO 0.5 % (0.0-0.4); LYMPHOCYTES ABSOLUTE AUTO 1.53 K/uL (0.50-3.50); LYMPHOCYTES PERCENT AUTO 27.1 % (10.0-50.0); MONOCYTES ABSOLUTE AUTO 0.61 K/uL (0.00-1.00); MONOCYTES PERCENT AUTO 10.8 % (2.0-14.0); NEUTROPHILS ABSOLUTE AUTO 3.33 K/uL (1.40-7.00); NEUTROPHILS PERCENT AUTO 58.9 % (45.0-80.0); PLATELET COUNT,PLT 216 K/uL (150-350); RED BLOOD CELL COUNT 3.11 M/uL (3.77-5.09); RED CELL DISTRIBUTION WIDTH 14.2 % (11.2-14.1); WHITE BLOOD CELL COUNT,WBC 5.7 K/uL (4.0-10.2)
[2025-06-20 08:15] LABS: BLOOD UREA NITROGEN,BUN 17.0 mg/dL (7-18); CARBON DIOXIDE,CO2 29.2 mmol/L (21.0-32.0); CHLORIDE,CL 113.0 mmol/L (98-107); CREATININE 1.27 mg/dL (0.51-1.17); EST CRCL DRUG DOSING (CG) 27.91 mL/min; GLUCOSE RANDOM 89.0 mg/dL (70-99); POTASSIUM,K 3.8 mmol/L (3.5-5.1); SODIUM,NA 147.0 mmol/L (136-145)
[2025-06-20 08:26] LABS: CREATINE KINASE,CK 4082.0 U/L (26-308); ESTIMATED GFR 44.0 mL/min (>=60)
[2025-06-20] MEDS: Magnesium Sulfate 4 GM/100 mL 4 GM in Premix Bag 1 BAG IV ONE (09:49)
[2025-06-20] MEDS: Furosemide 40 MG/4 ML VIAL IVPUSH SCH (09:57)
[2025-06-21 07:46] LABS: BASOPHILS ABSOLUTE AUTO 0.03 K/uL (0.00-0.20); BASOPHILS PERCENT AUTO 0.6 % (0.0-2.0); EOSINOPHILS ABSOLUTE AUTO 0.15 K/uL (0.00-0.50); EOSINOPHILS PERCENT AUTO 2.9 % (0.0-5.0); IMMATURE GRAN ABSOLUTE AUTO 0.03 10^3/uL (0.00-0.04); IMMATURE GRAN PERCENT AUTO 0.6 % (0.0-0.4); LYMPHOCYTES ABSOLUTE AUTO 1.68 K/uL (0.50-3.50); LYMPHOCYTES PERCENT AUTO 32.0 % (10.0-50.0); MONOCYTES ABSOLUTE AUTO 0.67 K/uL (0.00-1.00); MONOCYTES PERCENT AUTO 12.8 % (2.0-14.0); NEUTROPHILS ABSOLUTE AUTO 2.69 K/uL (1.40-7.00); NEUTROPHILS PERCENT AUTO 51.1 % (45.0-80.0); PLATELET COUNT,PLT 253 K/uL (150-350); RED BLOOD CELL COUNT 3.11 M/uL (3.77-5.09); RED CELL DISTRIBUTION WIDTH 14.4 % (11.2-14.1); WHITE BLOOD CELL COUNT,WBC 5.3 K/uL (4.0-10.2)
[2025-06-21 08:03] LABS: INR 2.7 (0.9-1.1)
[2025-06-21 08:06] LABS: ALANINE AMINOTRANSFERASE,ALT 96.0 U/L (12-78); ASPARTATE AMNIOTRANSFERASE,AST 165.0 U/L (15-37); BILIRUBIN TOTAL 0.4 mg/dL (0.2-1.0); BLOOD UREA NITROGEN,BUN 16.0 mg/dL (7-18); CARBON DIOXIDE,CO2 31.7 mmol/L (21.0-32.0); CHLORIDE,CL 111.0 mmol/L (98-107); CREATININE 1.26 mg/dL (0.51-1.17); EST CRCL DRUG DOSING (CG) 28.14 mL/min; GLUCOSE RANDOM 90.0 mg/dL (70-99); POTASSIUM,K 3.3 mmol/L (3.5-5.1); PROTEIN TOTAL,TP 5.3 g/dL (6.4-8.2); SODIUM,NA 146.0 mmol/L (136-145)
[2025-06-21 08:10] LABS: CREATINE KINASE,CK 2429.0 U/L (26-308); ESTIMATED GFR 45.0 mL/min (>=60)
[2025-06-21 08:17] VITALS: BP 150/73; PULSE 80
== END 2025-06-21 09:43 | disposition swing bed (61) | DRG 565 ==
LOC: LL.ED 14:02 → LL.MS 17:42
PROVIDERS: ADMIT Emergency Medicine; ATTEND Emergency Medicine
DX: T79.6XXA Traumatic ischemia of muscle, initial encounter (principal); G31.84 Mild cognitive impairment of uncertain or unknown etiology; R93.89 Abnormal findings on diagnostic imaging of other specified body structures; N17.9 Acute kidney failure, unspecified; Z66 Do not resuscitate; M54.9 Dorsalgia, unspecified; G89.29 Other chronic pain; Z88.1 Allergy status to other antibiotic agents; Z88.2 Allergy status to sulfonamides; F34.1 Dysthymic disorder; Z91.040 Latex allergy status; Z79.84 Long term (current) use of oral hypoglycemic drugs; F41.9 Anxiety disorder, unspecified; W19.XXXA Unspecified fall, initial encounter; I10 Essential (primary) hypertension; K21.9 Gastro-esophageal reflux disease without esophagitis; F32.A Depression, unspecified; F41.1 Generalized anxiety disorder; M79.7 Fibromyalgia; G25.81 Restless legs syndrome; R73.03 Prediabetes; R79.89 Other specified abnormal findings of blood chemistry; D64.9 Anemia, unspecified; E83.42 Hypomagnesemia; E78.00 Pure hypercholesterolemia, unspecified; J44.9 Chronic obstructive pulmonary disease, unspecified; H91.90 Unspecified hearing loss, unspecified ear; E66.9 Obesity, unspecified; Z68.32 Body mass index [BMI] 32.0-32.9, adult; Z86.711 Personal history of pulmonary embolism; Z79.899 Other long term (current) drug therapy; Z79.01 Long term (current) use of anticoagulants; Z88.8 Allergy status to other drugs, medicaments and biological substances
CPT/HCPCS: 36415; 70450; 72125; 73560-RT; 80048; 80053; 80305-QW; 81001; 82140; 82550; 83605; 83735; 83880; 85025; 85610; 96360; 96361; 97110-GP; 97162-GP; 97166-GO; 97530-GO; 97530-GP; 99223; 99232; 99233; 99239; 99285-25; A9270-GY; J1938; J2470; J3475; J7030

== ENCOUNTER 2025-06-21 10:47 | Inpatient (IN) | payer MEDICARE ==
[~2025-06-21 10:47] MED LIST: Ondansetron 4 MG/2 ML SDV IVPUSH PRN; Pharmacy Consult Order SCH; Polyvinyl Alcohol 1.4% Ophth Soln 15 ML Bottle EYEBOTH PRN; Sodium Chloride 0.9% 10 ML Syringe FLUSH PRN
[2025-06-21] MEDS: Magnesium Hydroxide 400 MG/5 ML Susp 30 ML Cup PO PRN (12:55)
[2025-06-21] MEDS: Potassium Chloride 20 MEQ Tab.ER PO ONE (12:55)
[2025-06-21] MEDS: Potassium Chloride 20 MEQ Tab.ER PO SCH (17:45)
[2025-06-21] MEDS: Bacitracin Oint 1 GM U/D Packet TOP SCH (19:16)
[2025-06-22 07:56] LABS: BLOOD UREA NITROGEN,BUN 19.0 mg/dL (7-18); CARBON DIOXIDE,CO2 32.9 mmol/L (21.0-32.0); CHLORIDE,CL 109.0 mmol/L (98-107); CREATININE 1.11 mg/dL (0.51-1.17); EST CRCL DRUG DOSING (CG) 31.94 mL/min; GLUCOSE RANDOM 83.0 mg/dL (70-99); POTASSIUM,K 3.7 mmol/L (3.5-5.1); SODIUM,NA 146.0 mmol/L (136-145)
[2025-06-22 07:57] LABS: BASOPHILS ABSOLUTE AUTO 0.03 K/uL (0.00-0.20); BASOPHILS PERCENT AUTO 0.5 % (0.0-2.0); EOSINOPHILS ABSOLUTE AUTO 0.16 K/uL (0.00-0.50); EOSINOPHILS PERCENT AUTO 2.7 % (0.0-5.0); IMMATURE GRAN ABSOLUTE AUTO 0.02 10^3/uL (0.00-0.04); IMMATURE GRAN PERCENT AUTO 0.3 % (0.0-0.4); LYMPHOCYTES ABSOLUTE AUTO 1.58 K/uL (0.50-3.50); LYMPHOCYTES PERCENT AUTO 26.9 % (10.0-50.0); MONOCYTES ABSOLUTE AUTO 0.86 K/uL (0.00-1.00); MONOCYTES PERCENT AUTO 14.6 % (2.0-14.0); NEUTROPHILS ABSOLUTE AUTO 3.23 K/uL (1.40-7.00); NEUTROPHILS PERCENT AUTO 55.0 % (45.0-80.0); PLATELET COUNT,PLT 285 K/uL (150-350); RED BLOOD CELL COUNT 2.98 M/uL (3.77-5.09); RED CELL DISTRIBUTION WIDTH 14.5 % (11.2-14.1); WHITE BLOOD CELL COUNT,WBC 5.9 K/uL (4.0-10.2)
[2025-06-22 07:59] LABS: CREATINE KINASE,CK 1732.0 U/L (26-308); ESTIMATED GFR 52.0 mL/min (>=60)
[2025-06-23 08:01] LABS: BASOPHILS ABSOLUTE AUTO 0.04 K/uL (0.00-0.20); BASOPHILS PERCENT AUTO 0.7 % (0.0-2.0); EOSINOPHILS ABSOLUTE AUTO 0.19 K/uL (0.00-0.50); EOSINOPHILS PERCENT AUTO 3.3 % (0.0-5.0); IMMATURE GRAN ABSOLUTE AUTO 0.02 10^3/uL (0.00-0.04); IMMATURE GRAN PERCENT AUTO 0.3 % (0.0-0.4); LYMPHOCYTES ABSOLUTE AUTO 1.44 K/uL (0.50-3.50); LYMPHOCYTES PERCENT AUTO 25.0 % (10.0-50.0); MONOCYTES ABSOLUTE AUTO 0.81 K/uL (0.00-1.00); MONOCYTES PERCENT AUTO 14.1 % (2.0-14.0); NEUTROPHILS ABSOLUTE AUTO 3.25 K/uL (1.40-7.00); NEUTROPHILS PERCENT AUTO 56.6 % (45.0-80.0); PLATELET COUNT,PLT 335 K/uL (150-350); RED BLOOD CELL COUNT 2.89 M/uL (3.77-5.09); RED CELL DISTRIBUTION WIDTH 15.0 % (11.2-14.1); WHITE BLOOD CELL COUNT,WBC 5.8 K/uL (4.0-10.2)
[2025-06-23 08:24] LABS: BLOOD UREA NITROGEN,BUN 17.0 mg/dL (7-18); CARBON DIOXIDE,CO2 33.6 mmol/L (21.0-32.0); CHLORIDE,CL 111.0 mmol/L (98-107); CREATININE 1.13 mg/dL (0.51-1.17); EST CRCL DRUG DOSING (CG) 31.37 mL/min; GLUCOSE RANDOM 84.0 mg/dL (70-99); POTASSIUM,K 4.0 mmol/L (3.5-5.1); SODIUM,NA 146.0 mmol/L (136-145)
[2025-06-23 08:33] LABS: CREATINE KINASE,CK 1020.0 U/L (26-308); ESTIMATED GFR 51.0 mL/min (>=60)
[2025-06-23 08:38] LABS: INR 2.2 (0.9-1.1)
[2025-06-24 08:13] LABS: BLOOD UREA NITROGEN,BUN 19.0 mg/dL (7-18); CARBON DIOXIDE,CO2 32.1 mmol/L (21.0-32.0); CHLORIDE,CL 110.0 mmol/L (98-107); CREATINE KINASE,CK 524.0 U/L (26-308); CREATININE 1.04 mg/dL (0.51-1.17); EST CRCL DRUG DOSING (CG) 34.09 mL/min; GLUCOSE RANDOM 89.0 mg/dL (70-99); POTASSIUM,K 4.2 mmol/L (3.5-5.1); SODIUM,NA 145.0 mmol/L (136-145)
[2025-06-24 08:14] LABS: ESTIMATED GFR 56.0 mL/min (>=60)
[2025-06-24 08:35] LABS: BASOPHILS ABSOLUTE AUTO 0.03 K/uL (0.00-0.20); BASOPHILS PERCENT AUTO 0.6 % (0.0-2.0); EOSINOPHILS ABSOLUTE AUTO 0.08 K/uL (0.00-0.50); EOSINOPHILS PERCENT AUTO 1.7 % (0.0-5.0); IMMATURE GRAN ABSOLUTE AUTO 0.00 10^3/uL (0.00-0.04); IMMATURE GRAN PERCENT AUTO 0.0 % (0.0-0.4); LYMPHOCYTES ABSOLUTE AUTO 1.21 K/uL (0.50-3.50); LYMPHOCYTES PERCENT AUTO 25.3 % (10.0-50.0); MONOCYTES ABSOLUTE AUTO 0.39 K/uL (0.00-1.00); MONOCYTES PERCENT AUTO 8.2 % (2.0-14.0); NEUTROPHILS ABSOLUTE AUTO 3.07 K/uL (1.40-7.00); NEUTROPHILS PERCENT AUTO 64.2 % (45.0-80.0); PLATELET COUNT,PLT 363 K/uL (150-350); RED BLOOD CELL COUNT 2.79 M/uL (3.77-5.09); RED CELL DISTRIBUTION WIDTH 15.1 % (11.2-14.1); WHITE BLOOD CELL COUNT,WBC 4.8 K/uL (4.0-10.2)
[2025-06-25 08:15] LABS: INR 1.4
[2025-06-26 07:30] LABS: INR 1.3
[2025-06-28 07:51] LABS: INR 1.3
[2025-07-01 07:47] LABS: INR 1.4
[2025-07-02 08:12] LABS: ALANINE AMINOTRANSFERASE,ALT 49.0 U/L (12-78); ASPARTATE AMNIOTRANSFERASE,AST 46.0 U/L (15-37); BILIRUBIN TOTAL 0.3 mg/dL (0.2-1.0); BLOOD UREA NITROGEN,BUN 18.0 mg/dL (7-18); CARBON DIOXIDE,CO2 30.6 mmol/L (21.0-32.0); CHLORIDE,CL 108.0 mmol/L (98-107); CREATININE 0.94 mg/dL (0.51-1.17); EST CRCL DRUG DOSING (CG) 37.71 mL/min; GLUCOSE RANDOM 78.0 mg/dL (70-99); POTASSIUM,K 3.5 mmol/L (3.5-5.1); PROTEIN TOTAL,TP 6.3 g/dL (6.4-8.2); SODIUM,NA 144.0 mmol/L (136-145)
[2025-07-02 08:19] LABS: ESTIMATED GFR 64.0 mL/min (>=60)
[2025-07-03 08:00] LABS: INR 1.9
[2025-07-05 07:26] VITALS: BP 143/81; PULSE 81
== END 2025-07-05 11:00 | DRG 57 ==
LOC: LL.MS 10:47
PROVIDERS: ADMIT Physician Assistant; ATTEND Physician Assistant
DX: G31.84 Mild cognitive impairment of uncertain or unknown etiology (principal); G89.29 Other chronic pain; M54.9 Dorsalgia, unspecified; F34.1 Dysthymic disorder; M79.7 Fibromyalgia; F41.1 Generalized anxiety disorder; K21.9 Gastro-esophageal reflux disease without esophagitis; R73.03 Prediabetes; G25.81 Restless legs syndrome; M06.9 Rheumatoid arthritis, unspecified; D64.9 Anemia, unspecified; R91.8 Other nonspecific abnormal finding of lung field; M53.3 Sacrococcygeal disorders, not elsewhere classified; G47.00 Insomnia, unspecified; Z79.899 Other long term (current) drug therapy; Z86.711 Personal history of pulmonary embolism; Z79.01 Long term (current) use of anticoagulants; Z79.84 Long term (current) use of oral hypoglycemic drugs
CPT/HCPCS: 36415; 36416; 73630-RT; 80048; 80053; 82550; 83735; 85025; 85610; 87426-QW; 97110-GO; 97110-GP; 97129-GO; 97130-GO; 97164-GP; 97165-GO; 97530-GO; 97530-GP; 97535-GO; 99307; 99316; A9270-GY; J7512; J8610